=== PATIENT | male | born 1950 | race Caucasian/White ===

== ENCOUNTER → 2017-02-17 | Outpatient (CLI) | payer OTHER ==
[~2017-02-17] VITALS: Ht 170.2 cm; Wt 87.6 kg
[~2017-02-17] MED LIST: A-B OTIC EAR DR15 ML OT; AMOXICILLIN875 MG PO; ASPIRIN EC81 M1 PO; ATORVASTATIN CA40 MG PO; CELLCEPT500 MG PO; CHLORTHALIDONE25 MG PO; HYDROCODONE-AP1 EAC6 PO; IMDUR 30 MG TAB30 M1 PO; LISINOPRIL40 MG PO; LOPRESSOR100 MG PO; NORCO 5-325 TA1 EACH PO; PREDNISONE 10 M10 M1 PO; PROGRAF5 MG PO; PROSCAR 5MG TABL5 MG PO; TRAMADOL 50 MG50 MG PO; VITAMIN D400 UNI1 PO; ZOCOR 20 MG TAB20 M1 PO
--- NOTE | ~2017-02-17 | HPC ---
[facility] [place] [address] PAIN MANAGEMENT CONSULTATION Name: JAIME KELLY Room #: REG CL Kacy#: [id number] Admission: 02/17/17 Attend Phys: John Guerra MD Discharge: Date of : 54 Report #: [id number] THIS REPORT FOR: //name// CC: John Ramos MD DATE OF SERVICE: 02/17/2017 FOLLOWUP COMPLAINT: Here for an epidural steroid injection. FOLLOWUP HISTORY: The patient is a 66-year-old gentleman who has been seen in the pain clinic because of lumbar radiculopathy. He has undergone epidural steroid injections and gleaned benefits from these. He has had greater than 50% improvement after the epidural steroid injections. He rates his pain as a 3 today, but continues to have some left buttocks pain with pain down into his left thigh. He notes he is unable to engage in some certain activities of daily living with ease because of this pain and discomfort. He has returned to the pain clinic for an epidural steroid injection. There were no complications. No bowel or bladder dysfunction. IMPRESSION: 1. Lumbar radiculopathy, greater than 50% improvement in the past. 2. Hypercholesterolemia. 3. Hypertension. Blood pressure 150/85, pulse 70, respiratory rate 14, and room air saturation is 98%. The patient would like to proceed. Complications were again reviewed and the patient elects to proceed. PROCEDURE NOTE: The patient was placed in the prone position. Fluoroscopy was used to identify the L5-S1 interspace. This area had been sterilely prepped with Betadine and infiltrated with 0.25% bupivacaine. Total of 80 mg Depo-Medrol, 40 mg triamcinolone and 2 mL of 0.25% bupivacaine was injected. The patient tolerated the procedure well. There were no complications. He remained in the pain clinic for an appropriate amount of time. Pain has decreased to 0 at the time of discharge. We would like to thank you for letting us participate in his care. We hope he continues to improve. <ELECTRONICALLY SIGNED> By: John Guerra MD 02/23/17 0824 [id number] [id number] John Guerra MD /nt
[2017-02-17 08:57] VITALS: BP 150/85
== END ==
LOC: PAIN 06:56
DX: M54.16 Radiculopathy, lumbar region (principal); E78.00 Pure hypercholesterolemia, unspecified; I10 Essential (primary) hypertension

== ENCOUNTER → 2017-06-02 | Outpatient (CLI) | payer OTHER ==
[~2017-06-02] VITALS: Ht 170.2 cm; Wt 87.5 kg
--- NOTE | ~2017-06-02 | HPC ---
[facility] [place] [address] PAIN MANAGEMENT CONSULTATION Name: JAIME KELLY Room #: REG [facility] Kacy#: [id number] Admission: 06/02/17 Attend Phys: John Guerra MD Discharge: Date of : 54 Report #: [id number] THIS REPORT FOR: //name// CC: John Ramos MD DATE OF SERVICE: 06/02/2017 FOLLOWUP COMPLAINT: Return of pain down into the left leg with numbness and weakness as before. Pain improved greater than 80% after the last injection. FOLLOWUP HISTORY: The patient is a 66-year-old gentleman who has been seen in the pain clinic because of lumbar radiculopathy. He has undergone epidural steroid injections in the past and improved greater than 50% after treatment. He has noted over the last few months some increased pain and discomfort, which is radiating down into his legs posteriorly. Pain is greatest in the left leg calf at this juncture. He describes it as sharp, shooting, aching pain. Pain intensity can vary. It intensifies with standing, sitting as well as walking. Pain has improved in the past with epidural steroid injections as well as lying down. He feels that another epidural steroid injection could and would be beneficial. He has had to limit his activities of daily living because of the return of this pain. He denies any change in his bowel or bladder function. PHYSICAL EXAMINATION: VITAL SIGNS: Blood pressure 138/77, pulse 72, respiratory rate 16, room air saturation is 100%. Height 5 feet 7 inches, weight 192 pounds, BMI is 30. EXTREMITIES: The patient has not fallen since we saw him last. He does have pain and discomfort in the low back area in the lumbar area in the L5-S1 distribution, L5-S1 dermatomal area, left greater than right. IMPRESSION: 1. Lumbar radiculopathy with greater than 50% improvement after epidural steroid injections in the past. 2. Hypercholesterolemia. 3. Hypertension. RECOMMENDATIONS: We discussed treatment options with the patient. Risks and benefits of an epidural steroid injection were again reviewed. Possible complications were discussed. They include bleeding, infection, increased muscle soreness, nerve trauma, but are not limited to these. He would like to proceed. We will petition his insurance company regarding his condition and seek treatment. ___, the patient has been given permission. We will proceed with a lumbar epidural steroid injection to help control the patient's pain and discomfort and increase his level of activity closer [place] [address] PAIN MANAGEMENT CONSULTATION Name: JAIME KELLY Room #: REG [facility]#: [id number] Admission: 06/02/17 Attend Phys: John Guerra MD Discharge: Date of : 54 Report #: [id number] to thank you for letting us participate in his care. We hope he continues to improve. By: 1317 0500 John Guerra MD /
[2017-06-02 08:34] VITALS: BP 138/77
== END ==
LOC: PAIN 07:20
DX: M54.16 Radiculopathy, lumbar region (principal); E78.00 Pure hypercholesterolemia, unspecified; I10 Essential (primary) hypertension

== ENCOUNTER → 2017-07-07 | Outpatient (CLI) | payer OTHER ==
[~2017-07-07] VITALS: Ht 170.2 cm; Wt 88.8 kg
--- NOTE | ~2017-07-07 | HPC ---
[facility] [place] [address] PAIN MANAGEMENT CONSULTATION Name: JAIME KELLY [id number] Admission: 07/07/17 Attend Phys: John Guerra MD Discharge: Date of : 54 Report #: [id number] THIS REPORT FOR: //name// CC: John Ramos MD DATE OF SERVICE: 07/07/2017 CHIEF COMPLAINT: Onset and return of pain radiating down into the left leg, which has improved by greater than 80% after the last injection. FOLLOWUP HISTORY: The patient is a 66-year-old gentleman who has been seen in the pain clinic because of lumbar radiculopathy. He has undergone epidural steroid injections and gleaned benefits from these. He returns today indicating that his pain is a 3, but causes problems with walking, standing and changing position. He would like to proceed with an epidural steroid injection. He denies any bowel or bladder dysfunction, has had no new trauma. Pain continued, which radiates down into his left leg. PHYSICAL EXAMINATION: VITAL SIGNS: Blood pressure 140/72, pulse 70, respiratory rate 16, room air saturation is 100, height 5 feet 7 inches, weight 197 pounds, BMI is 30. EXTREMITIES: He has not fallen since we saw him last. He continues to have pain in the L5-S1 dermatomal distribution. IMPRESSION: 1. Lumbar radiculopathy involving the left L5-S1 dermatomal distribution. 2. Hypercholesterolemia. 3. Hypertension. RECOMMENDATIONS: We discussed risks and benefits of the procedure with the patient. Risks, which could include infection, increased muscle soreness, headache, bleeding, nerve damage and increased pain. The patient elects to proceed. PROCEDURE NOTE: The patient was placed in the prone position. Fluoroscopy was used to identify the L5-S1 dermatomal area. ____ the left paraspinous area was identified. A 17-gauge Tuohy with loss of resistance technique was used to gain access to the epidural space. There was no CSF, heme or paresthesia. Total of 80 mg Depo-Medrol, 40 mg triamcinolone and 2 mL of 0.25% bupivacaine was injected. A total of about 10 seconds fluoroscopy time was used. We would like [address] [address] PAIN MANAGEMENT CONSULTATION Name: JAIME KELLY Room #: REG [facility].#: [id number] Admission: 07/07/17 Attend Phys: John Guerra MD Discharge: Date of : 54 Report #: [id number] to thank you for letting us participate in his care. We hope he continues to improve. By: [id number] John Guerra MD /MOLLY
[2017-07-07 09:22] VITALS: BP 140/72
== END | disposition home or self-care (01) ==
LOC: PAIN 07:18
DX: M54.16 Radiculopathy, lumbar region (principal); E78.00 Pure hypercholesterolemia, unspecified; I10 Essential (primary) hypertension; Z68.30 Body mass index [BMI] 30.0-30.9, adult

== ENCOUNTER → 2017-11-19 | Outpatient (CLI) | payer OTHER ==
[~2017-11-19] VITALS: Ht 170.2 cm; Wt 93.1 kg
[~2017-11-19] MED LIST changes: +CEFUROXIME250 MG PO
--- NOTE | ~2017-11-19 | HPC ---
[facility] [place] [address] PAIN MANAGEMENT CONSULTATION Name: JAIME KELLY Room #: REG [facility] Kat.#: [id number] Admission: 11/19/17 Attend Phys: John Guerra MD Discharge: Date of : 54 Report #: [id number] THIS REPORT FOR: //name// CC: John Ramos MD DATE OF SERVICE: 11/19/2017 FOLLOWUP COMPLAINT: Pain with control was pretty good and has slowly returned. I would like another injection greater than 50% improvement after the injection. FOLLOWUP HISTORY: The patient is a very pleasant 67-year-old gentleman who has been followed in the pain clinic because of lumbar radicular pain. He has undergone epidural steroid injections in the past. Last injection was in 07/2017. Noted good relief as a result of that. He is now beginning to have return of this pain. It radiates down the lower portion of his back and his right buttocks and to the posterior portion of his thigh. Notes some weakness and tenderness in the affected area. Denies any significant changes to his bowel or bladder function. He has not fallen or had new trauma. Denies any significant exertional changes which would have caused this. This is noted slow and increasing discomfort in the posterior portion of his leg with radiation down into the L5-S1 area with some numbness, aching and worsening of pain with standing, walking and changing from a sitting to a walking activity. ALLERGIES: SULFA. CURRENT MEDICATIONS: Have been reviewed and are hydrocodone 5/325 one q. 6 hours p.r.n., Proscar 5 mg 1 tablet daily, tramadol 50 mg b.i.d., Lipitor 40 mg daily, chlorthalidone 12.5 mg daily, Imdur 30 mg daily, prednisone 10 mg daily, Prograf b.i.d. takes 3 tabs in the morning, 2 tabs in the night, metoprolol 100 mg, lisinopril 40 mg, CellCept 500 mg, aspirin 81 mg. PHYSICAL EXAMINATION GENERAL: The patient is a well-developed white male, appears stated age, alert and oriented x 3. Affect is appropriate. HEENT: Normocephalic, atraumatic. Extraocular eye muscles intact, nonicteric. Ears, normal hearing. No nasal congestion or complaint. Moist buccal membranes. NECK: Without adenopathy or JVD. HEART: Regular rate. ABDOMEN: Nontender. Upper extremities is judged to be 5/5 with motor strength. No sensory changes. MUSCULOSKELETAL: Within normal limits without significant kyphosis, lordosis, or scoliosis. The patient has pain and discomfort radiating down into the left buttocks area in the L5-S1 distribution. Positive left straight leg raise. [facility] [address] [place] [address] PAIN MANAGEMENT CONSULTATION Name: JAIME KELLY IDALIA [facility] [id number] Admission: 11/19/17 Attend Phys: John Guerra MD Discharge: Date of : 54 Report #: [id number] Muscle strength is judged to be 5/5 in the major muscle groups in the lower extremity. PAIN CLINIC ASSESSMENT: 1. History of osteoarthritis. The patient denies rheumatoid arthritis. 2. Height 5 feet 7 inches, weight 205 pounds, BMI is 32.1. 3. VITAL SIGNS: Blood pressure 145/70, pulse 67, respiratory rate 16, room air saturation is 98%. 4. Pain intensity 2. 5. Fall risk. The patient has not fallen in the last 3 months. Does not need assistance with walking. 6. The patient is not on any blood thinners. 7. History of hypertension. The patient is being treated appropriately for hypertension. 8. Opioid use greater than 6 weeks. The patient uses tramadol. 9. Risk assessment tool. 10. Functional assessment tool. 11. Recreational drugs. Denies use of recreational drugs. Denies use of tobacco at this juncture. Denies use of alcoholic beverages on a regular basis. The patient is a former smoker. 12. Transplanted kidney. IMPRESSION: 1. Lumbar radiculopathy in the left L5-S1 dermatomal distribution, which has improved with epidural steroid injection in the past. 2. Hypercholesterolemia. 3. Hypertension. RECOMMENDATIONS: We discussed treatment options with the patient. He has gleaned benefit from the past injections. He finds that they are helpful. At this juncture, he would like to proceed with another epidural steroid injection. Possible complication of the procedure, which could include but were not limited to infection, increased muscle soreness, headache, bleeding, nerve damage and spinal headache were discussed. The patient elects to proceed. He will continue with his current medical regimen. He will call us if he has any problems with his medications. PROCEDURE NOTE: The patient was taken to the procedure area. He was assisted in getting on the examination table. A pillow was placed underneath the abdomen for bolstering. Fluoroscopy used in the AP and lateral viewing was used for the targeted area of the left L5-S1 area. This area had been sterilely prepped with Betadine and infiltrated with 0.25% bupivacaine. A 17-gauge Tuohy with loss of resistance technique was used to gain access to the epidural space. There was no CSF, heme or paresthesia. Total of 80 mg Depo-Medrol, 40 mg triamcinolone and 2 mL of 0.25% bupivacaine was injected. The patient tolerated the procedure well. A Band-Aid was placed at the site. There was no appreciable bleeding. [facility] [address] [place] [address] PAIN MANAGEMENT CONSULTATION Name: JAIME KELLY Room #: REG [facility].#: [id number] Admission: 11/19/17 Attend Phys: John Guerra MD Discharge: Date of : 54 Report #: [id number] He was then escorted to the Recovery Room where he remained for an appropriate amount of time. He will call us if he has any problems or concerns after the procedure. We would like to thank you for letting us participate in his care. We hope he continues to improve. <ELECTRONICALLY SIGNED> By: John Guerra MD 12/15/17 1424 [id number] John Guerra MD /MOLLY
[2017-11-19 08:46] VITALS: BP 145/70
== END ==
LOC: PAIN 07:15
DX: M54.16 Radiculopathy, lumbar region (principal); E78.00 Pure hypercholesterolemia, unspecified; I10 Essential (primary) hypertension; M19.90 Unspecified osteoarthritis, unspecified site; Z79.891 Long term (current) use of opiate analgesic; Z94.0 Kidney transplant status; Z88.2 Allergy status to sulfonamides; Z79.82 Long term (current) use of aspirin; Z79.899 Other long term (current) drug therapy

== ENCOUNTER → 2018-01-24 | Outpatient (CLI) | payer OTHER ==
[~2018-01-24] MED LIST changes: -CEFUROXIME250 MG PO
== END ==
LOC: NUC 06:38
DX: I25.10 Atherosclerotic heart disease of native coronary artery without angina pectoris (principal); I10 Essential (primary) hypertension; E78.5 Hyperlipidemia, unspecified; I21.9 Acute myocardial infarction, unspecified; Z87.891 Personal history of nicotine dependence

== ENCOUNTER → 2018-02-18 | Outpatient (CLI) | payer OTHER ==
[~2018-02-18] VITALS: Ht 170.2 cm; Wt 90.8 kg
--- NOTE | ~2018-02-18 | HPC ---
[facility] [place] [address] PAIN MANAGEMENT CONSULTATION Name: JAIME KELLY Room #: REG [facility] Kat.#: [id number] Admission: 02/18/18 Attend Phys: John Guerra MD Discharge: Date of : 54 Report #: [id number] THIS REPORT FOR: //name// CC: John Ramos FOLLOWUP COMPLAINT: Pain is beginning to go down into both hips and into the anterior portion of my leg and down past the left calf. FOLLOWUP HISTORY: The patient is a 67-year-old gentleman who has been followed in the pain clinic because of chronic pain. He pain is radiating down into his legs. He episodically receives injections. He finds that these are beneficial. At this juncture, he has noted a worsening of his pain. He rates it as a 2-3. Has perception of some weakness, fatigue increasing. He is experiencing aching discomfort with numbness. Pain is exacerbated with walking, getting up from his chair as well as activities of daily living. He would like to proceed with the epidural steroid injection. He gleans greater than 50% improvement after the injections. Denies any new trauma. Denies any problem with his bowel or bladder function. The patient continues to have pain and discomfort, which radiates down into the L5-S1 area, primarily on the left at this juncture. ALLERGIES: SULFA. CURRENT MEDICATIONS: Hydrocodone 5/325 q.4-6 hours p.r.n., Proscar 5 mg daily, tramadol 50 mg b.i.d., Lipitor 40 mg daily, chlorthalidone 12.5 mg daily, Imdur 30 mg daily, prednisone 10 mg, Prograf b.i.d. takes 2 tablets of this in the morning, 2 tablets in the evening, metoprolol 100 mg, lisinopril 40 mg, CellCept 500 mg, aspirin 81 mg daily. PAIN CLINIC ASSESSMENT: 1. History of osteoarthritis. The patient is not being routinely treated for osteoarthritis or rheumatoid arthritis. 2. Height 5 feet 7 inches, weight 200 pounds, BMI is 31. 3. VITAL SIGNS 169/86, pulse 72, respirations 16, saturation is 100%. 4. Pain intensity 2-3, approximately 80% improvement after the last injection. 5. Fall risk. The patient has not fallen in the last 3 months. 6. Blood thinner. The patient is on a blood thinning medication. 7. History of hypertension. 8. History of hypertension. The patient is being treated for hypertension. 9. Opioid therapy greater than 6 weeks. 10. Risk assessment tool. 11. Functional assessment tool. 12. Recreational drug use. 13. Tobacco use. 14. Alcohol: Occasional alcoholic use. PHYSICAL EXAMINATION: [facility] [address] [place] [address] PAIN MANAGEMENT CONSULTATION Name: JAIME KELLY IDALIA [id number] Admission: 02/18/18 Attend Phys: John Guerra MD Discharge: Date of : 54 Report #: [id number] GENERAL: The patient is a well-developed, well-nourished white male. He appears his stated age. He is alert and oriented x 3. His affect is appropriate. Speech is fluent. HEENT: Normocephalic, atraumatic. Extraocular eye muscles intact, nonicteric. Hearing is within normal limits. Mucous membranes are moist. NECK: Without adenopathy or JVD. Good range of motion. HEART: Regular rate. S1, S2. ABDOMEN: Nontender. MUSCULOSKELETAL: Without significant scoliosis, kyphosis or lordosis. Upper extremities exam judged 5/5 for the major muscle groups without sensory changes. Muscle bulk is symmetrical. Lower Extremities: The patient has pain and discomfort radiating down the left side into the buttocks with weakness, tenderness and discomfort in both hips and primarily affecting the L5-S1 area on the left. IMPRESSION: 1. Lumbar radiculopathy of the L5-S1 dermatomal distribution which improves with epidural steroid injection by greater than 50% in the past. 2. Hypercholesterolemia. 3. Hypertension. RECOMMENDATIONS: We discussed treatment options with the patient. We will proceed with an epidural steroid injection. Risks and benefits of the procedure, which could include but are not limited to infection, increased muscle soreness, headache, bleeding, paresis, paralysis. The patient is aware. We discussed the elevations of glucose levels, which can occur with use of steroid medications. The patient will continue to monitor his blood sugar. He will call us if he has any concerns. He elects to proceed. PROCEDURE NOTE: The patient was helped in the fluoroscopy room. He was then assisted in getting on the table. He was placed in the prone position. Fluoroscopy using anterior, posterior as well as lateral viewing was used to identify the left L5-S1 area. This area was then sterilely prepped. A 17-gauge Tuohy with loss of resistance technique was used to gain access to the epidural space. There was no CSF, heme or paresthesia. Total of 80 mg of Depo-Medrol, 40 mg of triamcinolone and 2 mL of 0.25% bupivacaine was injected. The patient tolerated the procedure well. There were no complications. He remained in the pain clinic for an appropriate amount of time. His pain decreased to 1 at the time of discharge. A total of 5 seconds fluoroscopy time was used. By: 1532 00 John Guerra MD /ilana
[2018-02-18 08:06] VITALS: BP 169/86
== END | disposition home or self-care (01) ==
LOC: PAIN 07:14
DX: M54.16 Radiculopathy, lumbar region (principal); G89.29 Other chronic pain; I10 Essential (primary) hypertension; E78.00 Pure hypercholesterolemia, unspecified; Z79.891 Long term (current) use of opiate analgesic; Z79.899 Other long term (current) drug therapy; Z79.82 Long term (current) use of aspirin; Z98.890 Other specified postprocedural states; Z88.2 Allergy status to sulfonamides

== ENCOUNTER 2018-03-14 19:15 | Emergency (ER) | payer OTHER ==
[~2018-03-14] VITALS: Ht 170.2 cm; Wt 89.8 kg
[2018-03-14 20:07] LABS: URINE BILIRUBIN NEGATIVE (Negative); URINE BLOOD 3+ (Negative); URINE CLARITY CLEAR; URINE COLOR YELLOW; URINE GLUCOSE-RANDOM* NEGATIVE (Negative); URINE KETONES NEGATIVE (Negative); URINE LEUKOCYTES 1+ (Negative); URINE NITRITE NEGATIVE (Negative); URINE PROTEIN (DIPSTICK) TRACE (Negative); URINE UROBILINOGEN 0.2 E.U./dl (0.2-1.0)
[2018-03-14 20:21] LABS: BACTERIA 1-9 Few /HPF (None Seen); CASTS None Seen /LPF (None Seen); CRYSTALS None Seen /LPF (None Seen); MUCUS 0-3 Light strn/LPF (None Seen); URINE WBC >25 Many /HPF (0-5)
[2018-03-14 20:22] LABS: SQUAMOUS 0-3 Few /LPF (0-3); WBC CLUMPS Moderate (None Seen)
[2018-03-14] MEDS ORDERED: CEFUROXIME250 MG PO (20:44)
[2018-03-14 20:47] LABS: BASOPHILS 0.1 % (0.0-2.0); HEMATOCRIT 36.8 % (42.0-52.0); HEMOGLOBIN 12.4 gm/dL (14.0-18.0); LYMPHOCYTES 2.3 % (24.0-44.0); MCH 29.8 pg (26.0-34.0); MCHC 33.8 g/dL (28.0-37.0); MCV 88.3 fL (80.0-100.0); MONOCYTES 1.8 % (1.0-8.0); PLATELET COUNT 108 thou/uL (150-400); POLYS 95.8 % (36.0-66.0); RBC 4.17 mil/uL (4.50-6.00); RDW 14.7 % (10.5-14.5); WBC 9.4 thou/uL (4.0-11.0)
[2018-03-14 20:56] LABS: CALCIUM 9.4 mg/dL (8.5-10.1); CREATININE 1.9 mg/dL (0.7-1.3); POTASSIUM 3.5 mmol/L (3.5-5.1)
[2018-03-14 21:02] LABS: ALBUMIN 3.5 g/dL (3.4-5.0); DIRECT BILIRUBIN 0.2 mg/dL (<0.1-0.3); TOTAL BILIRUBIN 0.7 mg/dL (<0.1-1.0); TOTAL PROTEIN 6.3 g/dL (6.4-8.2)
== END 2018-03-14 21:52 | disposition home or self-care (01) ==
LOC: ER 19:15
PROVIDERS: Emergency Medicine
DX: N39.0 Urinary tract infection, site not specified (principal); N28.9 Disorder of kidney and ureter, unspecified; A41.9 Sepsis, unspecified organism; Z88.2 Allergy status to sulfonamides

== ENCOUNTER → 2018-05-25 | Outpatient (CLI) | payer OTHER ==
[~2018-05-25] VITALS: Ht 170.2 cm; Wt 88.9 kg
[~2018-05-25] MED LIST changes: +CEFUROXIME250 MG PO
--- NOTE | ~2018-05-25 | HPC ---
[facility] [place] [address] PAIN MANAGEMENT CONSULTATION Name: JAIME KELLY Room #: REG [facility] Kacy#: [id number] Admission: 05/25/18 Attend Phys: John Guerra MD Discharge: Date of : 54 Report #: [id number] THIS REPORT FOR: //name// CC: John Ramos DATE OF SERVICE: 05/25/2018 FOLLOWUP COMPLAINT: Pain is returned. Things have gone very well since I saw you last. FOLLOWUP HISTORY: The patient is a 67-year-old gentleman who has been followed in the pain clinic because of chronic pain involving his low back. He has pain that radiates down the L5-S1 dermatomal distribution. He has last injection about 6 months ago. Things have been going reasonably well. He has noted a slow recurrence of his pain and discomfort. He would like to proceed with another injection. He is having some numbness down into his calf. Not as pronounced as he has in the past. Rates his pain between 2 and 4. He has had no falls or change in bowel or bladder function since we saw him last. PAST MEDICAL HISTORY: 1. Positive for kidney transplant. 2. Lumbar radiculopathy, L5-S1 dermatomal distribution, which improved with epidural steroid injections in the past. 3. Hypercholesterolemia. 4. Hypertension. ALLERGIES: SULFA. CURRENT MEDICATIONS: Hydrocodone 5/325 one p.o. ____, Proscar 5 mg, tramadol 50 mg b.i.d., Lipitor 40 mg, chlorthalidone 12.5 mg, Imdur 30 mg, prednisone 10 mg daily, Prograf b.i.d., takes 3 tabs in the morning, 2 tabs at night; metoprolol 100 mg, lisinopril 40 mg, CellCept 500 mg, and aspirin 81 mg. PAIN CLINIC ASSESSMENT: 1. History of osteoarthritis. The patient states he has not been treated for osteoarthritis or rheumatoid arthritis. 2. Height 5 feet 7 inches, weight 196 pounds, BMI is 30.7. VITAL SIGNS: Blood pressure ____, pulse 74, respiratory rate 16, room air saturation 99%. 3. Pain intensity 11/13. 4. Fall risk. The patient has not fallen in the last 3 months. 5. Blood thinner. The patient is not on a blood thinning medication. 6. Hypertension. The patient is being treated for hypertension. 7. Opioid therapy. The patient does receive opioid medications on occasions. 8. Risk assessment tool, low for [place] [address] PAIN MANAGEMENT CONSULTATION Name: JAIME KELLY Room #: REG [facility]#: [id number] Admission: 05/25/18 Attend Phys: John Guerra MD Discharge: Date of : 54 Report #: [id number] 9. Functional assessment tool. 10. Recreational drug use. The patient denies use of recreational drugs. 11. Tobacco: The patient has never smoked. 12. Alcohol: The patient denies frequent use of alcoholic beverages. PHYSICAL EXAMINATION: GENERAL: The patient is a well-developed, well-nourished white male. Appears his stated age. He is alert and oriented x 3. Speech is fluent. HEENT: Normocephalic, atraumatic. Extraocular eye muscles intact. Sclerae nonicteric. Mucous membranes moist. NECK: Without JVD or adenopathy. HEART: Regular rate. S1, S2. LUNGS: Clear to auscultation. MUSCULOSKELETAL: Without significant scoliosis, kyphosis or lordosis. Upper extremity muscle strength 5/5 without sensory changes, low back area. The patient has pain and discomfort which radiated down the L5-S1 dermatomal distribution involving the left side. He has undergone epidural steroid injection in this area in the past and found it beneficial. RECOMMENDATIONS: We discussed treatment options with the patient. Risks and benefits of an epidural steroid injection were again reviewed. Possible complications, which are infection, increased muscle soreness, headache, worsening of pain, no improvement in pain, paralysis, increased headache. The patient elects to proceed. PROCEDURE NOTE: The patient was taken to the procedure room. He was assisted in getting on the examination table. His back was sterilely prepped with a Betadine prep. A 0.25% bupivacaine was infiltrated in this area. Anterior, posterior as well as lateral viewing with fluoroscopy was used to direct the needle; in a left paraspinal approach, a 17-gauge Tuohy was advanced. A total of 80 mg Depo-Medrol, 40 mg triamcinolone and 2 mL of 0.25% bupivacaine was injected. The patient tolerated the procedure well. There were no complications. He remained in the pain clinic for an appropriate amount of time. He will follow up in the future as needed. We would like to thank you for letting us participate in his care. We hope he continues to improve. By: [id number] 1731 John Guerra MD /ilana
[2018-05-25 09:40] VITALS: BP 108/67
== END | disposition home or self-care (01) ==
LOC: PAIN 07:31
DX: M54.16 Radiculopathy, lumbar region (principal); G89.29 Other chronic pain; I10 Essential (primary) hypertension; E78.00 Pure hypercholesterolemia, unspecified; Z94.0 Kidney transplant status; Z88.2 Allergy status to sulfonamides; Z79.891 Long term (current) use of opiate analgesic; Z79.899 Other long term (current) drug therapy; Z79.82 Long term (current) use of aspirin; Z98.890 Other specified postprocedural states

== ENCOUNTER → 2018-08-31 | Outpatient (CLI) | payer OTHER ==
[~2018-08-31] VITALS: Ht 170.2 cm; Wt 89.7 kg
[2018-08-31 08:27] VITALS: BP 138/79
--- NOTE | 2018-08-31 08:39 | NUR ---
Pain Clinic Assessment: 1. History of Osteoarthritis: Not Applicable History of Rheumatoid Arthritis: Not Applicable 2. Height: 5 ft. 7 in. 170.2 cm. Weight: 197.8 lb. oz. 89.722 kg. Patient's BMI: 31.0 3. Vital Signs: BP: 138/79 Pulse: 76 Resp: 18 Temp: 02 Sat: 100 ECG Mon: 4. Pain Intensity: 3 today 5 worst 5. Fall Risk: Dizziness: N Needs help standing or walking: N Fallen in the last 3 months: N Fall risk comments: 6. Patient on Blood Thinner: None 7. History of Hypertension: Y 8. Opioid Therapy greater than 6 weeks: N Opiate Contract Signed: 9. Risk Assessment Tool Provided: 10. Functional Assessment Tool: 11. Recreational Drug Use: Never Drug Type: Tobacco Use: Never Smoker Tobacco Type: Amount or Packs/day: How Many Years: Alcohol Use: Yes Frequency: Quant:
--- NOTE | 2018-09-07 08:55 | HPC ---
[facility] [place] [address] PAIN MANAGEMENT CONSULTATION Name: JAIME KELLY Room #: REG [facility] Kat.#: [id number] Admission: 08/31/18 Attend Phys: John Guerra MD Discharge: Date of : 54 Report #: [id number] THIS REPORT FOR: //name// CC: John Ramos DATE OF SERVICE: 08/31/2018 FOLLOWUP COMPLAINT: Here for another epidural steroid injection. Things were helped by the last one. FOLLOWUP HISTORY: The patient is a very pleasant 68-year-old gentleman who has been followed in the pain clinic because of chronic low back pain with lumbar radicular components. He has undergone epidural steroid injection in the L5-S1 dermatomal distribution in the past, things have gone relatively well. He has noticed a recurrence of his pain and has returned to the pain clinic for another epidural steroid injection. He gleaned greater than 50% improvement each time. At this juncture, he has noticed that the pain has increased and is radiating down into both hips and the anterior portion of his legs as well as some knee and calf discomfort. He describes it as sharp, aching numbness. This is 3 today, at its worse, it can rise to the level of 5. Standing, walking, and getting up from a sitting position all can cause increased pain. Notes that the epidural steroid injections continue to be beneficial. Lying down and taking medications can be helpful as well. Denies any new trauma. Denies any falls or change in bowel or bladder function. ALLERGIES: SULFA. CURRENT MEDICATIONS: Hydrocodone 5/325 one p.o. q 6 hours p.r.n. pain, Proscar 5 mg, tramadol 50 mg b.i.d., Lipitor 40 mg, chlorthalidone 12.5 mg, Imdur 30 mg, prednisone 10 mg daily, Prograf b.i.d., takes 3 tablets in the morning and 2 tablets at night, metoprolol 100 mg, lisinopril 40 mg, CellCept 500 mg, and aspirin 81 mg. PAIN CLINIC ASSESSMENT AND PQRS: 1. History of osteoarthritis. The patient has not been treated for osteoarthritis or rheumatoid arthritis. 2. Height 5 feet 7 inches, weight 198 pounds, BMI is 31. 3. Vital signs: Blood pressure 138/79, pulse 76, respiratory rate 18, room air saturation is 100%. 4. Pain intensity, 3/10 at this point, and 5/10 at its worse. 5. Fall risk. The patient has not fallen in the last 3 months. 6. Blood thinner. The patient is not on a blood thinning medication. 7. Hypertension. The patient is being treated for hypertension. 8. Opioids greater than 6 weeks. The patient received medication from one source, [place] [address] PAIN MANAGEMENT CONSULTATION Name: JAIME KELLY IDALIA [id number] Admission: 08/31/18 Attend Phys: John Guerra MD Discharge: Date of : 54 Report #: [id number] 9. Risk assessment tool, low for opioid use. 10. Functional assessment tool. 11. Recreational drug use. The patient denies use of recreational drugs. 12. Tobacco: The patient has never smoked. 13. Alcohol. The patient drinks alcoholic beverages occasionally. PHYSICAL EXAMINATION: GENERAL: The patient is a well-developed, well-nourished white male. Appears his stated age. He is alert and oriented x 3. His affect is appropriate. Speech is fluent. HEENT: Normocephalic, atraumatic. Extraocular eye muscles intact. Sclerae nonicteric. Mucous membranes are moist. NECK: Without JVD or adenopathy. HEART: Regular rate. S1, S2. LUNGS: Clear to auscultation without rhonchi or rales. ABDOMEN: Nontender. Bowel sounds present. MUSCULOSKELETAL: Without significant scoliosis, kyphosis, and lordosis. Upper extremity muscle strength is judged to be 5/5 without sensory changes. The patient has some pain and discomfort in the lower portion of his back in the L5-S1 dermatomal distribution with radiation down to the left side. Involves the left leg lateral portion with pain that radiates past the knee cap down to the calf. IMPRESSION: 1. Lumbar radiculopathy in the L5-S1 dermatomal distribution, which has improved in the past with epidural steroid injection. 2. Hypercholesterolemia. 3. Hypertension. 4. Kidney transplant. 5. Heart attack 23 years ago. RECOMMENDATIONS: We discussed treatment options with the patient. Risks and benefits of an epidural steroid injection were discussed. The patient is having pain and discomfort in the L5-S1 dermatomal distribution down the left leg with sensory changes, which have improved with previous epidural steroid injections. The patient would like to proceed with an epidural steroid injection. Possible complication of the procedure, which could include infection, increased muscle soreness, headache, bleeding, worsening of pain, and no improvement in pain were reviewed and the patient elects to proceed. PROCEDURE NOTE: The patient was taken to the procedure area. He was assisted in getting on the examination table. A pillow was placed under his abdomen to bolster and improved positioning. Fluoroscopy using anterior, posterior as well as lateral viewing were implemented. At the L5-S1 area in the left paraspinous area. A 25-gauge needle was injected with local anesthetic. A 17-gauge Tuohy was then used to gain access in the left paraspinous approach. After [facility] [address] [place] [address] PAIN MANAGEMENT CONSULTATION Name: JAIME KELLY Room #: REG [facility]#: [id number] Admission: 08/31/18 Attend Phys: John Guerra MD Discharge: Date of : 54 Report #: [id number] appropriate placement, a total of 80 mg Depo-Medrol, 40 mg triamcinolone and 2 mL of 0.25% bupivacaine was injected. The patient's pain decreased to 1 at the time of discharge. He will follow up in the future as needed. We would like to thank you for letting us participate in his care. We hope he continues to improve. <ELECTRONICALLY SIGNED> By: John Guerra MD 09/07/18 0855 [id number] John Guerra MD /nt
== END ==
LOC: PAIN 05:40
DX: M54.16 Radiculopathy, lumbar region (principal); G89.29 Other chronic pain; I10 Essential (primary) hypertension; E78.00 Pure hypercholesterolemia, unspecified; I25.2 Old myocardial infarction; Z94.0 Kidney transplant status; Z98.890 Other specified postprocedural states; Z79.899 Other long term (current) drug therapy; Z88.2 Allergy status to sulfonamides; Z79.891 Long term (current) use of opiate analgesic

== ENCOUNTER → 2018-12-07 | Outpatient (CLI) | payer OTHER ==
[~2018-12-07] VITALS: Ht 170.2 cm; Wt 92.1 kg
--- NOTE | ~2018-12-07 | HPC ---
[facility] [place] [address] PAIN MANAGEMENT CONSULTATION Name: JAIME KELLY Room #: REG [facility] MEdwina.#: [id number] Admission: 12/07/18 ������������������ Attend Phys: John Guerra MD Discharge: ������������������ Date of : 54 Report #: [id number] THIS REPORT FOR: //name// CC: John Ramos DATE OF SERVICE: 12/07/2018 FOLLOWUP COMPLAINT: Here for an epidural steroid injection. Noticed some pain that is going down into both legs and both hips. It has been worse since September. FOLLOWUP HISTORY: The patient is a 68-year-old gentleman who has been followed in the Pain Clinic because of chronic low back pain. He has undergone epidural steroid injection from time to time. He gleans greater than 50% improvement after the epidural steroid injections. He has returned today and is complaining of pain and discomfort in his low back and down into his hips bilaterally. He rates it as a 3/10. He notes that he is having difficulty getting up from a sitting position. He finds his medications are helpful as well as application of cold to his back. He notes that prolonged standing can increase his discomfort. Denies any new trauma. Denies any new bowel or bladder change in function. ALLERGIES: SULFA. CURRENT MEDICATIONS: Hydrocodone 5/325s one p.o. q. six hours p.r.n., Proscar 5 mg, tramadol 50 mg b.i.d., Lipitor 40 mg, chlorthalidone 12.5 mg, Imdur 30 mg, prednisone 10 mg daily, Prograf b.i.d. - takes three tablets in the morning and two tablets at night, metoprolol 100 mg, lisinopril 40 mg, CellCept 500 mg, and aspirin 81 mg. PAIN CLINIC ASSESSMENT/PQRS: 1. History of osteoarthritis: The patient is not being treated for osteoarthritis or rheumatoid arthritis. 2. Height 5 feet 7 inches, weight 203 pounds, BMI is 31. 3. Vital signs: Blood pressure 144/85, pulse 64, respiratory rate 16, room air saturation 100%. 4. Pain intensity: 12/11. 5. Fall risk: The patient has not fallen in the last 3 months. 6. Blood thinner: The patient is not on a blood thinning medication. 7. Hypertension: The patient is being treated for hypertension. 8. Opioids greater than 6 weeks. 9. Risk assessment tool: Low for opioid use, 0/3. 10. Functional assessment tool: 39/70. 11. Recreational drug use: The patient denies use of recreational drugs. 12. Tobacco: The patient denies use of tobacco. [address] [address] PAIN MANAGEMENT CONSULTATION Name: JAIME KELLY IDALIA [facility] [id number] Admission: 12/07/18 ������������������ Attend Phys: John Guerra MD Discharge: ������������������ Date of : 54 Report #: [id number] 13. Alcohol: The patient drinks alcoholic beverages 1-2 drinks monthly. PHYSICAL EXAMINATION: GENERAL: The patient is a well-developed, well-nourished white male. He appears his stated age. He is alert and oriented x 3. His affect is appropriate. Speech is fluent. HEENT: Normocephalic, atraumatic. Extraocular eye muscles are intact. Sclerae are nonicteric. Mucous membranes are moist. NECK: Without adenopathy or JVD. HEART: Regular rate, S1 and S2. LUNGS: Clear to auscultation, without rhonchi or rales. ABDOMEN: Nontender. Bowel sounds present. MUSCULOSKELETAL: Without significant scoliosis, kyphosis, or lordosis. Upper extremity muscle strength is judged to be 5/5 without sensory changes. The patient has pain and discomfort in the lower portion of his back with pain in the L5-S1 dermatomal distribution down to the left leg. He would like to proceed with an epidural steroid injection. He also has pain that radiates down into his knee and calf area. IMPRESSION: 1. Lumbar radiculopathy, L5-S1 dermatomal distribution. 2. Hypercholesterolemia. 3. Hypertension. 4. Kidney transplant. 5. Heart attack 23 years ago. RECOMMENDATIONS: We discussed treatment options with the patient. Risks and benefits of an epidural steroid injection were discussed. Possible complications of the procedure, which could include but are not limited to infection, worsening of pain, no improvement in pain, nerve damage, trauma, spinal headache. The patient elects to proceed. PROCEDURE NOTE: The patient was taken to the procedure area. He was assisted in getting on the examination table. A pillow was placed under the abdomen to bolster and improve positioning. Fluoroscopy using anterior, posterior as well as lateral viewing were implemented. At the L5-S1 interspace, 0.25% bupivacaine was infiltrated using a 25-gauge needle. A 17-gauge Tuohy using a midline approach was then undertaken at the L5-S1 area. A 0.25% bupivacaine was infiltrated. A 17-gauge Tuohy with loss of resistance technique was used to gain access to the epidural space. There was no CSF, heme or paresthesia. A total of 80 mg Depo-Medrol, 40 mg triamcinolone and 2 mL of 0.25% bupivacaine was injected. A total of 9 seconds fluoroscopy time was used. [address] [address] PAIN MANAGEMENT CONSULTATION Name: JAIME KELLY [facility] [id number] Admission: 12/07/18 ������������������ Attend Phys: John Geurra MD Discharge: ������������������ Date of : 54 Report #: [id number] We would like to thank you for letting us participate in his care. We hope he continues to improve. ��������������������������������������������� ���������������������������������������� By: ��������������������������������������������� 0015 0330 John Guerra MD /nt
[2018-12-07 10:12] VITALS: BP 144/85
--- NOTE | 2018-12-07 10:46 | NUR ---
Pain Clinic Assessment: 1. History of Osteoarthritis: Not Applicable History of Rheumatoid Arthritis: Not Applicable 2. Height: 5 ft. 7 in. 170.2 cm. Weight: 203.0 lb. oz. 92.080 kg. Patient's BMI: 31.8 3. Vital Signs: BP: 144/85 Pulse: 64 Resp: 16 Temp: 02 Sat: 100 ECG Mon: 4. Pain Intensity: 3 5. Fall Risk: Dizziness: N Needs help standing or walking: N Fallen in the last 3 months: N Fall risk comments: 6. Patient on Blood Thinner: None 7. History of Hypertension: Y 8. Opioid Therapy greater than 6 weeks: N Opiate Contract Signed: 9. Risk Assessment Tool Provided: LOW RISK 0/3 10. Functional Assessment Tool: 39/70 11. Recreational Drug Use: Never Drug Type: Tobacco Use: Never Smoker Tobacco Type: Amount or Packs/day: How Many Years: Alcohol Use: Yes Frequency: Monthly Quant: 1-2
== END | disposition home or self-care (01) ==
LOC: PAIN 06:58
DX: M54.16 Radiculopathy, lumbar region (principal); G89.29 Other chronic pain; I10 Essential (primary) hypertension; E78.00 Pure hypercholesterolemia, unspecified; I25.2 Old myocardial infarction; Z94.0 Kidney transplant status; Z88.2 Allergy status to sulfonamides; Z79.891 Long term (current) use of opiate analgesic; Z98.890 Other specified postprocedural states; Z79.899 Other long term (current) drug therapy; Z87.440 Personal history of urinary (tract) infections; Z79.82 Long term (current) use of aspirin

== ENCOUNTER → 2019-03-03 | Outpatient (CLI) | payer OTHER ==
[~2019-03-03] VITALS: Ht 170.2 cm; Wt 90.4 kg
[2019-03-03 09:43] VITALS: BP 153/84
--- NOTE | 2019-03-03 09:53 | NUR ---
Pain Clinic Assessment: 1. History of Osteoarthritis: SPINE History of Rheumatoid Arthritis: NO 2. Height: 5 ft. 7 in. 170.2 cm. Weight: 199.4 lb. oz. 90.447 kg. Patient's BMI: 31.2 3. Vital Signs: BP: 153/84 Pulse: 70 Resp: 16 Temp: 02 Sat: 100 ECG Mon: 4. Pain Intensity: 4 5. Fall Risk: Dizziness: N Needs help standing or walking: N Fallen in the last 3 months: N Fall risk comments: 6. Patient on Blood Thinner: None 7. History of Hypertension: Y 8. Opioid Therapy greater than 6 weeks: N Opiate Contract Signed: 9. Risk Assessment Tool Provided: LOW RISK 0/3 10. Functional Assessment Tool: 11. Recreational Drug Use: Never Drug Type: Tobacco Use: Never Smoker Tobacco Type: Amount or Packs/day: How Many Years: Alcohol Use: Yes Frequency: Special Occasions Quant:
--- NOTE | 2019-03-08 08:16 | HPC ---
[facility] [place] [address] PAIN MANAGEMENT CONSULTATION Name: JAIME KELLY Room #: REG [facility] MEdwina.#: [id number] Admission: 03/03/19 ������������������ Attend Phys: John Guerra MD Discharge: ������������������ Date of : 54 Report #: [id number] THIS REPORT FOR: //name// CC: John Ramos DATE OF SERVICE: 03/03/2019 CHIEF COMPLAINT: Low back pain that is improved with epidural injections in the past and has come for another. HISTORY OF PRESENT ILLNESS: The patient is a 68-year-old gentleman who has been followed in the pain clinic because of chronic pain. He has undergone epidural steroid injections and finds that these are helpful. As you recall, currently he has greater than 50% improvement with the injections. He also has a history of a renal transplant. Things are going reasonably well from that juncture as well. He has some pain in his low back and involves his left leg. Notes that the left leg, hip and discomfort down to the knee is problematic. He rates it as a 4/10. It is exacerbated with activity and does have some cardiac history and overall things are going reasonably well from a cardiac standpoint as well. Has some right wrist, right shoulder discomfort. ALLERGIES: SULFA. CURRENT MEDICATIONS: Hydrocodone 5/325 1 p.o. q.4-6 hours p.r.n., Proscar 5 mg, tramadol 50 mg b.i.d. 1-2 daily, Lipitor 40 mg, chlorthalidone 12.5 mg daily, isosorbide, Imdur 30 mg, prednisone 10 mg, Prograf 5 mg b.i.d., Lopressor 10 mg, lisinopril 40 mg, CellCept 750 mg b.i.d. and aspirin 81 mg. PAIN CLINIC ASSESSMENT AND PQRS: 1. History of osteoarthritis. The patient is not being treated for osteoarthritis or rheumatoid arthritis. 2. Height 5 feet 7 inches, weight 199 pounds, BMI is 31.2. 3. Vital Signs: Blood pressure 153/84, pulse 70, respiratory rate 16, room air saturation is 100%. 4. Pain intensity 01/11. 5. Fall history: The patient has not fallen in the last 3 months. 6. Blood thinner. The patient is not on a blood thinning medication. 7. Hypertension. The patient is being treated for hypertension. 8. Opioids greater than 6 weeks. The patient receives his medications from one source. 9. Risk assessment tool, low for opioid use. 10. Functional assessment tool, 39/70. 11. Recreational drug use. The patient denies. 12. Tobacco: The patient has never smoked. 13. Alcohol: The patient denies other than occasional alcoholic beverage. [facility] [address] [place] [address] PAIN MANAGEMENT CONSULTATION Name: JAIME KELLY IDALIA [facility] [id number] Admission: 03/03/19 ������������������ Attend Phys: John Guerra MD Discharge: ������������������ Date of : 54 Report #: [id number] PHYSICAL EXAMINATION: GENERAL: The patient is a well-developed, well-nourished white male. Appears his stated age. He is alert and oriented x 3. Affect is appropriate. Speech is fluent. HEENT: Normocephalic, atraumatic. Extraocular eye muscles intact. Sclerae nonicteric. Mucous membranes are moist. NECK: Without adenopathy or JVD. HEART: Regular rate. S1, S2. LUNGS: Clear to auscultation without rhonchi or rales. ABDOMEN: Nontender. Bowel sounds present. MUSCULOSKELETAL: Without significant scoliosis, kyphosis or lordosis. Upper extremity muscle strength is judged to be 5-/5 without sensory changes. Lower extremity, the patient has pain and discomfort that is radiating down the L5 dermatomal distribution involving his left leg with pain and discomfort in the area of his calf and knee. IMPRESSION: 1. Lumbar radiculopathy with L5-S1 dermatomal distribution. 2. Hypercholesterolemia. 3. Hypertension. 4. Kidney transplant. 5. Heart attack 23 years ago. RECOMMENDATIONS: We discussed treatment options with the patient. At this juncture, he feels medications that he is on help with his pain. He also feels that the epidural steroid injections have been beneficial. He has returned today with the hope of undergoing an epidural steroid injection to help decrease the pain and discomfort he is experiencing that is radiating down into his leg. We discussed the risks and benefits that include, but are not limited to infection, increased muscle soreness, headache, bleeding, nerve damage with paralysis. The patient elects to proceed. PROCEDURE NOTE: The patient was taken to the procedure area. He was then assisted in getting on the examination table. His back was sterilely prepped with a Betadine solution. Fluoroscopy using anterior, posterior as well as lateral viewing were implemented. The patient's back was sterilely prepped and allowed to dry. A 0.25% bupivacaine using a 25-gauge needle was then used to infiltrate the L5-S1 area. Aspiration was negative. A total of 2 mL 0.5% bupivacaine was used to anesthetize the area. A 17-gauge Tuohy with loss of resistance technique at the L5-S1 area was then used. A left paramedian approach was undertaken. Aspiration was negative. Total of 80 mg Depo-Medrol, 40 mg triamcinolone and 2 mL of 0.25% bupivacaine was injected. The patient tolerated the procedure well. There were no complications. He remained in the pain clinic for an appropriate amount of time. Approximately 9 seconds fluoroscopy time was used. [address] [address] PAIN MANAGEMENT CONSULTATION Name: JAIME KELLY Room #: REG [facility]#: [id number] Admission: 03/03/19 ������������������ Attend Phys: John Guerra MD Discharge: ������������������ Date of : 54 Report #: [id number] We would like to thank you for letting us participate in his care. We hope he continues to improve. ��������������������������������������������� <ELECTRONICALLY SIGNED> ���������������������������������������� By: John Guerra MD ��������������������������������������������� 03/08/19 0816 1315 0406 John Guerra MD /MOLLY
== END | disposition home or self-care (01) ==
LOC: PAIN 06:47
DX: M54.16 Radiculopathy, lumbar region (principal); G89.29 Other chronic pain; I10 Essential (primary) hypertension; E78.00 Pure hypercholesterolemia, unspecified; I25.2 Old myocardial infarction; Z94.0 Kidney transplant status; Z98.890 Other specified postprocedural states; Z79.899 Other long term (current) drug therapy; Z88.2 Allergy status to sulfonamides; Z79.82 Long term (current) use of aspirin

== ENCOUNTER → 2019-06-14 | Outpatient (CLI) | payer OTHER ==
[~2019-06-14] VITALS: Ht 170.2 cm; Wt 88.0 kg
[~2019-06-14] MED LIST changes: +FLOMAX0.4 MG PO
[2019-06-14 08:39] VITALS: BP 148/74
--- NOTE | 2019-06-14 08:41 | NUR ---
Pain Clinic Assessment: 1. History of Osteoarthritis: SPINE History of Rheumatoid Arthritis: NO 2. Height: 5 ft. 7 in. 170.2 cm. Weight: 194.0 lb. oz. 87.998 kg. Patient's BMI: 30.4 3. Vital Signs: BP: 148/74 Pulse: 68 Resp: 16 Temp: 02 Sat: 97 ECG Mon: 4. Pain Intensity: 3-4-TODAY/DAILY AVG 5. Fall Risk: Dizziness: N Needs help standing or walking: N Fallen in the last 3 months: N Fall risk comments: 6. Patient on Blood Thinner: None 7. History of Hypertension: Y 8. Opioid Therapy greater than 6 weeks: N Opiate Contract Signed: 9. Risk Assessment Tool Provided: LOW RISK 0/3 10. Functional Assessment Tool: 39/70 11. Recreational Drug Use: Never Drug Type: Tobacco Use: Never Smoker Tobacco Type: Amount or Packs/day: How Many Years: Alcohol Use: Yes Frequency: Quant:
== END | disposition home or self-care (01) ==
LOC: PAIN 06-09 06:47
DX: M54.16 Radiculopathy, lumbar region (principal); G89.29 Other chronic pain; Z88.2 Allergy status to sulfonamides; Z79.82 Long term (current) use of aspirin; Z79.899 Other long term (current) drug therapy

== ENCOUNTER → 2019-09-04 | Outpatient (CLI) | payer OTHER ==
--- NOTE | 2019-09-04 10:51 | 2DMMODE ---
[facility] [employer] (acquired by [employer] in 2014) [place] [address] 2 D/M-MODE ECHOCARDIOGRAM Name: JAIME KELLY Room #: REG [facility]#: [id number] Admission: 09/04/19 Attend Phys: Abdoul Martinez MD Discharge: Date of : 54 Report #: [id number] THIS REPORT FOR: //name// APPROVED REPORT Study performed: 09/04/2019 10:02:18 EXAM: Comprehensive 2D, Doppler, and color-flow Echocardiogram Patient Location: Out-Patient Room #: Echo lab 2 Status: routine BSA: 2.00 HR: 69 bpm BP: 154/82 mmHg Rhythm: NSR Other Information Study Quality: Good Indications Diabetes CAD Hypertension/HDD 2D Dimensions RVDd: 31.30 mm IVSd: 11.28 (7-11mm) LVOT Diam: 18.57 (18-24mm) LVDd: 54.00 mm PWd: 10.83 (7-11mm) Ascending Ao: 29.15 (22-36mm) LVDs: 42.24 (25-40mm) Aortic Root: 33.38 mm IVC: 19.00 mm Volumes Left Atrial Volume (Systole) Single Plane 4CH: 92.20 mL Single Plane 2CH: 67.92 mL LA ESV Index: 42.00 mL/m2 Aortic Valve AoV Peak Noel.: 1.29 m/s AO Peak Gr.: 6.68 mmHg LVOT Max P.92 mmHg LVOT Max V: 0.99 m/s SAHIL Vmax: 2.08 cm2 Mitral Valve E/A Ratio: 1.1 [facility] [employer] (acquired by [employer] in 2014) [place] [address] 2 D/M-MODE ECHOCARDIOGRAM Name: JAIME KELLY Room #: REG CL [facility]#: [id number] Admission: 09/04/19 Attend Phys: Abdoul Martinez MD Discharge: Date of : 54 Report #: [id number] MV Decel. Time: 125.27 ms MV E Max Noel.: 1.15 m/s MV A Noel.: 1.03 m/s MV PHT: 36.33 ms IVRT: 119.95 ms Pulmonary Valve PV Peak Noel.: 0.93 m/s PV Peak Gr.: 3.50 mmHg Pulmonary Vein P Vein S: 0.64 m/s P Vein A: 0.24 m/s P Vein D: 0.52 m/s P Vein A Dur.: 83.0 msec P Vein S/D Ratio: 1.23 Left Ventricle The left ventricle is normal size. There is hypokinesis of the inferior wall. There is normal left ventricular wall thickness. Left ventricular systolic function is mildly decreased. LVEF is 45%. Grade I - abnormal relaxation pattern. Right Ventricle The right ventricle is normal size. The right ventricular systolic function is normal. Atria Left atrium is dilated. The right atrium size is normal. Aortic Valve The aortic valve is normal in structure. Aortic valve is calcified. No aortic regurgitation is present. There is no aortic valvular stenosis. Mitral Valve The mitral valve is normal in structure. Mild mitral regurgitation. No evidence of mitral valve stenosis. Tricuspid Valve The tricuspid valve is normal in structure. There is no tricuspid valve regurgitation noted. Pulmonic Valve The pulmonary valve is normal in structure. There is no pulmonic valvular regurgitation. Great Vessels The aortic root is normal in size. IVC is normal in size and [facility] [address] [place] [address] 2 D/M-MODE ECHOCARDIOGRAM Name: JAIME KELLY Room #: REG [facility]#: [id number] Admission: 09/04/19 Attend Phys: Abdoul Martinez MD Discharge: Date of : 54 Report #: [id number] collapses >50% with inspiration. Pericardium There is no pericardial effusion. <Conclusion> The left ventricle is normal size. There is normal left ventricular wall thickness. Left ventricular systolic function is mildly decreased. There is hypokinesis of the inferior wall. Grade I - abnormal relaxation pattern. The right ventricle is normal size. Left atrium is dilated. Aortic valve is calcified. Mild mitral regurgitation. There is no tricuspid valve regurgitation noted. <ELECTRONICALLY SIGNED> By: Abdoul Martinez MD 09/04/191050 50 50 Abdoul Martinez MD /INF
== END ==
LOC: CV 09:53
DX: I08.0 Rheumatic disorders of both mitral and aortic valves (principal); E11.9 Type 2 diabetes mellitus without complications; I25.10 Atherosclerotic heart disease of native coronary artery without angina pectoris; I10 Essential (primary) hypertension

== ENCOUNTER → 2019-09-15 | Outpatient (CLI) | payer OTHER ==
[~2019-09-15] VITALS: Ht 170.2 cm; Wt 91.2 kg
[2019-09-15 08:25] VITALS: BP 153/85
--- NOTE | 2019-09-15 08:39 | NUR ---
Pain Clinic Assessment: 1. History of Osteoarthritis: SPINE History of Rheumatoid Arthritis: NO 2. Height: 5 ft. 7 in. 170.2 cm. Weight: 201.0 lb. oz. 91.173 kg. Patient's BMI: 31.5 3. Vital Signs: BP: 153/85 Pulse: 73 Resp: 14 Temp: 02 Sat: 98 ECG Mon: 4. Pain Intensity: 2 5. Fall Risk: Dizziness: N Needs help standing or walking: N Fallen in the last 3 months: N Fall risk comments: 6. Patient on Blood Thinner: None 7. History of Hypertension: Y 8. Opioid Therapy greater than 6 weeks: N Opiate Contract Signed: 9. Risk Assessment Tool Provided: LOW RISK 0/3 10. Functional Assessment Tool: 39/70 11. Recreational Drug Use: Current within past 3 mos Drug Type: MARIJUANA Tobacco Use: Never Smoker Tobacco Type: Amount or Packs/day: How Many Years: Alcohol Use: Yes Frequency: Monthly Quant: 1-2
== END | disposition home or self-care (01) ==
LOC: PAIN 07:29
DX: M54.16 Radiculopathy, lumbar region (principal); Z88.2 Allergy status to sulfonamides; Z79.82 Long term (current) use of aspirin; Z79.899 Other long term (current) drug therapy

== ENCOUNTER → 2019-12-20 | Outpatient (CLI) | payer OTHER ==
[~2019-12-20] VITALS: Ht 170.2 cm; Wt 94.2 kg
[2019-12-20 09:59] VITALS: BP 159/91
--- NOTE | 2019-12-20 10:09 | NUR ---
Pain Clinic Assessment: 1. History of Osteoarthritis: SPINE History of Rheumatoid Arthritis: NO 2. Height: 5 ft. 7 in. 170.2 cm. Weight: 207.6 lb. oz. 94.167 kg. Patient's BMI: 32.5 3. Vital Signs: BP: 159/91 Pulse: 75 Resp: 18 Temp: 02 Sat: 99 ECG Mon: 4. Pain Intensity: 2 5. Fall Risk: Dizziness: N Needs help standing or walking: N Fallen in the last 3 months: N Fall risk comments: 6. Patient on Blood Thinner: None 7. History of Hypertension: Y 8. Opioid Therapy greater than 6 weeks: N Opiate Contract Signed: 9. Risk Assessment Tool Provided: LOW RISK 0/3 10. Functional Assessment Tool: 41/ 11. Recreational Drug Use: Never Drug Type: Tobacco Use: Never Smoker Tobacco Type: Amount or Packs/day: How Many Years: Alcohol Use: Yes Frequency: Special Occasions Quant:
--- NOTE | 2019-12-29 08:21 | HPC ---
[facility] [place] [address] PAIN MANAGEMENT CONSULTATION Name: JAIME KELLY [id number] Admission: 12/20/19 Attend Phys: John Guerra MD Discharge: Date of : 54 Report #: [id number] THIS REPORT FOR: cc: Romel Simms MD,Romel Guerra,John Lombardi MD ~ CC: John Simms DATE OF SERVICE: 12/20/2019 CHIEF COMPLAINT: The pain was better for the last few months. It has now recurred. HISTORY: The patient is a 69-year-old gentleman who has been followed in the pain clinic because of lumbar radiculopathy. He has undergone epidural steroid injections. These have been quite helpful. He is experiencing pain that continues to radiate down into his left leg. Epidural steroid injections in the past have been beneficial. He rates his pain today as a 2/10. The pain does appear to be increasing. He noticed some increased discomfort as a result of that. Epidural steroid injections have been fruitful. He is not having any problems with his kidney. He has undergone kidney transplant. He notes that his pain can be exacerbated with walking, standing as well as with weather changes. Pain improves when he lies down or when he is sitting on a chair. Because of the pain that is radiating down into his back involving his left hip and leg, he would like to undergo another injection today. ALLERGIES: SULFA. CURRENT MEDICATIONS: Hydrocodone 5/325 one p.o. q. 6 hours p.r.n., Flomax 0.4 mg, Proscar 5 mg, tramadol 50 mg b.i.d., Lipitor 40 mg, chlorthalidone 12.5 mg daily, Imdur 30 mg, prednisone 10 mg, Prograf 5 mg b.i.d., metoprolol 100 mg daily, Zestril 40 mg, CellCept 500 mg total of 750 mg b.i.d. and aspirin 81 mg. PAIN CLINIC ASSESSMENT AND PQRS: 1. The patient is not being treated for osteoarthritis or rheumatoid arthritis. 2. Height 5 feet 7 inches, weight 207 pounds, BMI is 32.5. 3. Vital signs: Blood pressure 159/91, pulse 75, respiratory rate 18, room air saturation 99%. 4. Pain intensity 11/13. 5. Fall history: The patient has not fallen in the last 3 months. 6. Blood thinner. The patient is not on a blood thinning medication. 7. Hypertension. The patient is being treated for hypertension. 8. Opioids greater than 6 weeks. The patient is not on an opioid regimen. The patient receives opioids from his primary physician. 9. Risk assessment tool, [place] [id number] PAIN MANAGEMENT CONSULTATION Name: JAIME KELLY Room #: REG [facility].#: [id number] Admission: 12/20/19 Attend Phys: John Guerra MD Discharge: Date of : 54 Report #: [id number] 10. Functional assessment tool 41/70. 11. Recreational drugs: The patient denies. 12. Tobacco: The patient has never smoked. 13. Alcohol. The patient denies use of alcoholic beverages. PHYSICAL EXAMINATION: GENERAL: The patient is a well-developed, well-nourished white male. Appears his stated age. He is alert and oriented x 3. His affect is appropriate. Speech is fluent. HEENT: Normocephalic, atraumatic. Extraocular eye muscles intact. Sclerae nonicteric. Mucous membranes are moist. NECK: Without adenopathy or JVD. HEART: Regular rate. LUNGS: Generally clear to auscultation. ABDOMEN: Nontender. Bowel sounds present. MUSCULOSKELETAL: The patient without significant scoliosis, kyphosis or lordosis. The patient has pain in the lower extremity with pain that is radiating down into the left leg, hip and in the L5-S1 dermatomal distribution with pain in his calf and thorne. IMPRESSION: 1. Lumbar radiculopathy pain in the L5-S1 dermatomal distribution. 2. Hypercholesterolemia. 3. Hypertension. 4. Kidney failure, status post renal transplant. 5. Heart attack 23 years ago. 6. Prostatic hypertrophy. 7. Hypercholesterolemia. RECOMMENDATIONS: We discussed treatment options with the patient. Risks and benefits of an epidural steroid injection were discussed. Possible complications of the procedure, which could include but are not limited to infection, worsening of pain, no improvement in pain, nerve damage were discussed and the patient elects to proceed. PROCEDURE NOTE: The patient was taken to the procedure area. He was then assisted in getting on the examination table. He was helped to get into position. A pillow was placed under the abdomen to bolster and improve positioning. His back was sterilely prepped with a Betadine solution. This was allowed to dry. Fluoroscopy using anterior, posterior as well as lateral viewing were implemented. A 0.25% bupivacaine was infiltrated at the L5-S1 area. This was anesthetized. A 17-gauge Tuohy with loss of resistance technique was then used to gain access to the epidural space. There was no CSF, heme or paresthesia. Total of 80 mg Depo-Medrol, 40 mg triamcinolone and 2 mL of 0.25% bupivacaine was injected. The patient tolerated the procedure well. There were no complications. He remained in the pain clinic for an appropriate [facility] [address] [place] [address] PAIN MANAGEMENT CONSULTATION Name: JAIME KELLY Room #: REG [facility].#: [id number] Admission: 12/20/19 Attend Phys: John Guerra MD Discharge: Date of : 54 Report #: [id number] amount of time. We would like to thank you for letting us participate in his care. We hope he continues to improve. <ELECTRONICALLY SIGNED> By: John Guerra MD 12/29/19 0821 1655 2325 John Guerra MD /nt
== END | disposition home or self-care (01) ==
LOC: PAIN 06:41
DX: M54.16 Radiculopathy, lumbar region (principal); E78.00 Pure hypercholesterolemia, unspecified; I10 Essential (primary) hypertension; I25.2 Old myocardial infarction; Z98.890 Other specified postprocedural states; Z79.899 Other long term (current) drug therapy; Z79.891 Long term (current) use of opiate analgesic; Z94.0 Kidney transplant status; Z88.2 Allergy status to sulfonamides

== ENCOUNTER → 2020-03-07 | Outpatient (CLI) | payer OTHER | LOC: SJCVC 11:48 | PROVIDERS: ATTEND Internal Medicine Cardiovascular Disease | DX: R94.31 Abnormal electrocardiogram [ECG] [EKG] (principal); I25.10 Atherosclerotic heart disease of native coronary artery without angina pectoris; E78.00 Pure hypercholesterolemia, unspecified; I12.9 Hypertensive chronic kidney disease with stage 1 through stage 4 chronic kidney disease, or unspecified chronic kidney disease; N18.9 Chronic kidney disease, unspecified; I82.411 Acute embolism and thrombosis of right femoral vein; Z95.1 Presence of aortocoronary bypass graft; Z79.899 Other long term (current) drug therapy; Z87.891 Personal history of nicotine dependence ==

== ENCOUNTER → 2020-04-15 | Outpatient (CLI) | payer OTHER ==
[~2020-04-15] MED LIST changes: +CARVEDILOL25 MG PO; +ELIQUIS5 MG PO; +MAGNESIUM400 MG PO; +NEURONTIN100 MG PO; +TORSEMIDE20 MG PO
== END ==
LOC: SJCVCIMAG 04-04 10:01
PROVIDERS: ATTEND Internal Medicine Cardiovascular Disease
DX: I08.1 Rheumatic disorders of both mitral and tricuspid valves (principal); I11.9 Hypertensive heart disease without heart failure; R94.31 Abnormal electrocardiogram [ECG] [EKG]; I25.810 Atherosclerosis of coronary artery bypass graft(s) without angina pectoris; R60.9 Edema, unspecified; E78.00 Pure hypercholesterolemia, unspecified; E78.5 Hyperlipidemia, unspecified; Z95.1 Presence of aortocoronary bypass graft; Z82.49 Family history of ischemic heart disease and other diseases of the circulatory system; Z79.82 Long term (current) use of aspirin; Z79.899 Other long term (current) drug therapy; Z87.891 Personal history of nicotine dependence

== ENCOUNTER → 2020-04-17 | Outpatient (CLI) | payer OTHER ==
[~2020-04-17] VITALS: Ht 170.2 cm; Wt 94.5 kg
[2020-04-17 08:50] VITALS: BP 149/79
--- NOTE | 2020-04-17 08:56 | NUR ---
Pain Clinic Assessment: 1. History of Osteoarthritis: SPINE History of Rheumatoid Arthritis: NO 2. Height: 5 ft. 7 in. 170.2 cm. Weight: 208.4 lb. oz. 94.530 kg. Patient's BMI: 32.6 3. Vital Signs: BP: 149/79 Pulse: 79 Resp: 16 Temp: 02 Sat: 100 ECG Mon: 4. Pain Intensity: 4-5 5. Fall Risk: Dizziness: N Needs help standing or walking: Y Fallen in the last 3 months: N Fall risk comments: FELL AT HOME,WENT TO ER AND HE HAD A BLOOD CLOT IN HIS RIGHT GROIN/ON ELIQUIS 6. Patient on Blood Thinner: None 7. History of Hypertension: Y 8. Opioid Therapy greater than 6 weeks: N Opiate Contract Signed: 9. Risk Assessment Tool Provided: LOW RISK 0/3 10. Functional Assessment Tool: 41/70 11. Recreational Drug Use: Never Drug Type: Tobacco Use: Never Smoker Tobacco Type: Amount or Packs/day: How Many Years: Alcohol Use: Yes Frequency: Quant:
--- NOTE | 2020-05-01 08:53 | HPC ---
[facility] [place] [address] PAIN MANAGEMENT CONSULTATION Name: JAIME KELLY Room #: REG [facility].#: [id number] Admission: 04/17/20 Attend Phys: John Guerra MD Discharge: Date of : 54 Report #: [id number] THIS REPORT FOR: cc: Romel Simms MD,Romel Guerra,John Lombardi MD ~ CC: John Simms DATE OF SERVICE: 04/17/2020 CHIEF COMPLAINT: Here for an injection. HISTORY: The patient is a 69-year-old gentleman who has been followed in the pain clinic for quite some time. He has pain and discomfort involving his low back area. He has undergone epidural steroid injections in the past and found them beneficial. He returns today because of worsening of pain and discomfort in his low back. He is having pain that radiates down into his legs. He has developed a blood clot on the right leg. He has been placed on a blood thinning medication. Notes his pain is a 4-5/10. Walking, standing can be problematic. The patient notes improvement when he is lying down or when he is sitting. ALLERGIES: SULFA. CURRENT MEDICATIONS: Eliquis 5 mg b.i.d., Coreg 25 mg b.i.d., torsemide 20 mg, Flomax 0.4 mg, hydrocodone 5/325 q. 6 hours p.r.n., Proscar 5 mg, tramadol 50 mg b.i.d., Lipitor 40 mg, Imdur 30 mg, prednisone 10 mg daily, Prograf b.i.d., Zestril 40 mg, CellCept 500 mg b.i.d. and aspirin 81 mg. PAIN CLINIC ASSESSMENT AND PQRS: 1. History of osteoarthritis involving the spine. The patient is not being treated for rheumatoid arthritis. 2. Height 5 feet 7 inches, weight 208, respiratory rate is 16, room air saturation is 100%. Blood pressure 149/79, pulse 79, pain intensity is 4-5/10. 3. Fall history: The patient fell at home, went to the Emergency Room, found to have a blood clot in his right groin area. He is on Eliquis. 4. Blood thinner. The patient is on Eliquis. 5. Hypertension. The patient is being treated for hypertension. 6. Opioids. The patient receives medications from his primary. 7. Risk assessment tool, low for opioid use. 8. Functional assessment tool 41/70. 9. Recreational drug use, denies. 10. Tobacco: Does not smoke. 11. Alcohol: The patient drinks alcoholic beverages on occasion. PHYSICAL EXAMINATION: [facility] [address] [place] [address] PAIN MANAGEMENT CONSULTATION Name: JAIME KELLY IDALIA [facility] [id number] Admission: 04/17/20 Attend Phys: John Guerra MD Discharge: Date of : 54 Report #: [id number] GENERAL: The patient is a well-developed, well-nourished white male. Appears his stated age. He is alert and oriented x 3. His affect is appropriate. Speech is fluent. HEENT: Normocephalic, atraumatic. Extraocular eye muscles intact. Sclerae nonicteric. Mucous membranes are moist. NECK: Without adenopathy or JVD. HEART: Regular rate. LUNGS: Clear. ABDOMEN: Nontender. Bowel sounds present. MUSCULOSKELETAL: Upper extremity muscle strength 5/5. The patient without significant scoliosis, kyphosis or lordosis. The patient does have some pain and discomfort in the groin area. It involves his left leg. Does have L5-S1 dermatomal distribution of pain into his calf. IMPRESSION: 1. Lumbar radiculopathy in the L5-S1 dermatomal distribution. 2. New onset of blood clot in the leg, treated with anticoagulant. 3. Hypercholesterolemia. 4. Hypertension. 5. Kidney failure, status post renal transplant. 6. Heart attack 23 years ago. 7. Prostatic hypertrophy. 8. Hypercholesterolemia. RECOMMENDATIONS: We discussed treatment options with the patient. At this juncture, we will continue with his medications. He will try tramadol. He is on a blood thinning medication at this juncture, he needs to check with his primary as to when he can come off the medication. After he comes off his medication, he can return to the pain clinic, at which time we could then consider an epidural steroid injection. We would like to thank you for letting us participate in his care. We hope he continues to improve. <ELECTRONICALLY SIGNED> By: John Guerra MD 05/01/20 0853 0830 1555 John Guerra MD /ilana
== END ==
LOC: PAIN 06:52
PROVIDERS: ATTEND Anesthesiology Pain Medicine
DX: M54.16 Radiculopathy, lumbar region (principal); E78.00 Pure hypercholesterolemia, unspecified; I10 Essential (primary) hypertension; Z94.0 Kidney transplant status; Z86.74 Personal history of sudden cardiac arrest; Z79.01 Long term (current) use of anticoagulants

== ENCOUNTER → 2020-05-22 | Outpatient (CLI) | payer OTHER ==
[~2020-05-22] VITALS: Ht 170.2 cm; Wt 91.6 kg
[2020-05-22 10:21] VITALS: BP 169/94
--- NOTE | 2020-05-22 10:33 | NUR ---
Pain Clinic Assessment: 1. History of Osteoarthritis: SPINE History of Rheumatoid Arthritis: NO 2. Height: 5 ft. 7 in. 170.2 cm. Weight: 202.0 lb. oz. 91.627 kg. Patient's BMI: 31.6 3. Vital Signs: BP: 169/94 Pulse: 73 Resp: 16 Temp: 02 Sat: 99 ECG Mon: 4. Pain Intensity: 2 5. Fall Risk: Dizziness: N Needs help standing or walking: N Fallen in the last 3 months: N Fall risk comments: FELL AT HOME,WENT TO ER AND HE HAD A BLOOD CLOT IN HIS RIGHT GROIN/ON ELIQUIS 6. Patient on Blood Thinner: ELIQUIS 7. History of Hypertension: Y 8. Opioid Therapy greater than 6 weeks: N Opiate Contract Signed: 9. Risk Assessment Tool Provided: LOW RISK 0/3 10. Functional Assessment Tool: 11. Recreational Drug Use: Never Drug Type: Tobacco Use: Never Smoker Tobacco Type: Amount or Packs/day: How Many Years: Alcohol Use: Yes Frequency: Special Occasions Quant:
--- NOTE | 2020-05-22 13:56 | HPC ---
[facility] [address] [address] PAIN MANAGEMENT CONSULTATION Name: JAIME KELLY Room #: REG [facility].#: [id number] Admission: 05/22/20 Attend Phys: Penny Jackson Discharge: Date of : 54 Report #: [id number] THIS REPORT FOR: cc: Romel Simms MD, Steven E. MD Hocker, Amanda CNS ~ CC: Patrica Guerra MD DATE OF SERVICE: 05/22/2020 CHIEF COMPLAINT: Low back pain and lumbar radiculopathy. HISTORY OF PRESENT ILLNESS: This is a pleasant 69-year-old who returns to the pain clinic today for a refill of his medication that he uses to help treat his lumbar radiculopathy. Today, he is reporting pain in his bilateral hips, greater on the left that does radiate into his calf. He also complains of low back pain. It is an aching feeling, worse with walking and standing. Today, he reports his pain score of 2/10. It does increase at times throughout the day. He feels that lying down, sitting and his tramadol are very beneficial as well as taking the gabapentin that Dr. Guerra recently started him. The patient does report he continues on his blood thinner as a result of his blood clot in his lower extremity. He is hopeful stop the medication in June and then he would like to have another lumbar epidural steroid injection from Dr. Guerra. He finds these are very beneficial in decreasing his pain, but he understands that he is only able to take medications while on this blood thinner. ALLERGIES: SULFA. CURRENT LIST OF MEDICATIONS: Tramadol 50 mg p.r.n., gabapentin 100 mg t.i.d., magnesium, Eliquis, Coreg, furosemide, tamsulosin, hydrocodone p.r.n., Proscar, Lipitor, Imdur, prednisone, Prograf, lisinopril, sulfa and aspirin. PQRS: 1. He has history of osteoarthritis involving his spine. He is not being treated for rheumatoid arthritis. 2. Height is 5 feet 7 inches, weight is 202. BMI is 31. 3. Vital signs 169/94, pulse is 73, respirations 16, oxygen sat is 99%. Pain score is 2/10. 4. Fall risk. Denies dizziness, does not need help walking or standing, has not fallen in the last 3 months. The patient remains on Eliquis as well as medications for high blood pressure. 5. His opioid therapy is greater than 6 weeks. Risk assessment tool is low. Functional assessment is 33/70. 6. Recreational drug use, he denies. He is [place] [address] PAIN MANAGEMENT CONSULTATION Name: KELLYJAIME IDALIA [facility] [id number] Admission: 05/22/20 Attend Phys: Penny Jackson Discharge: Date of : 54 Report #: [id number] drinks alcohol. According to the prescription monitoring system, the patient is filling his medications appropriately. Dr. Guerra started writing his medications in April. Previously, Dr. Martin was prescribing his tramadol prescriptions. He has been filling monthly. His morphine milliequivalent according to the CDC guidelines is 20 MME. PHYSICAL EXAMINATION: GENERAL: This is alert and orientated, pleasant 69-year-old who is well-developed, well-nourished white gentleman. His affect is appropriate. Speech is fluent, placing his current pain score at 2/10. HEENT: Normocephalic, atraumatic. Extraocular eye muscles are intact. Sclerae are nonintrinsic. He is wearing a mask. NECK: Without adenopathy or JVD. MUSCULOSKELETAL: The patient is without significant scoliosis, kyphosis or lordosis. He has discomfort in his lumbar spine that follows the L5-S1 dermatomal distribution into his legs, greater on the left than the right. His lower extremity strength judged to be symmetrical at 5/5. IMPRESSION: 1. Lumbar radiculopathy with pain in the L5-S1 dermatomal distribution. 2. Recent blood clot in his leg, on anticoagulation therapy. 3. Hypercholesterolemia. 4. Hypertension. 5. Kidney failure, status post renal transplant. 6. Opioid medication management. We reviewed the fact that opiate medications are being used to provide analgesia adequate to support activities of daily living, not attempting to achieve a specific pain score on the 0-10 Visual Analog Scale. The current opiate medications are providing sufficient analgesia to allow the patient to participate in activities of daily living. The patient is not exhibiting any aberrant behavior suggestive of drug diversion. The patient is not having any adverse reactions to medications. The patient is not suffering from daytime somnolence or mental acuity changes. The patient is managing opiate-induced constipation with appropriate bptm-ebd-sndrpup agents and dietary considerations. The patient was counseled on concern for caution with operating a motor vehicle while using opiate medications. PLAN: 1. We discussed treatment options with the patient today. The patient understands that he is not able to have an injection in his back, which he finds very beneficial until he is off his blood thinner. He hopes to be off by the end of the year. In the meantime, we will continue him on his current medication regimen of gabapentin 100 mg t.i.d. Scripts for 90 with 5 refills, [facility] [address] [place] [address] PAIN MANAGEMENT CONSULTATION Name: JAIME KELLY Room #: REG [facility].#: [id number] Admission: 05/22/20 Attend Phys: Penny Jackson Discharge: Date of : 54 Report #: [id number] and we will have Dr. Sekou Guerra send his tramadol 50 mg q.i.d., #120 with 2 additional refills for a total of 3 months. 2. I did inform the patient if Dr. Guerra continues to write this medication, we will have him sign a written opioid agreement with our physicians and that will be required to see him on an every 3-month basis. The patient verbalizes understanding. He is hopeful that after his epidural, he will be able to decrease his medication intake. 3. The patient is seen today in collaboration with Dr. Harjit Guerra who did see the patient as well. <ELECTRONICALLY SIGNED> By: Penny Jackson 05/22/20 1356 1101 1340 Penny Jackson /nt
== END ==
LOC: PAIN 06:52
PROVIDERS: ATTEND Clinical Nurse Specialist Adult Health
DX: M54.16 Radiculopathy, lumbar region (principal); I74.3 Embolism and thrombosis of arteries of the lower extremities; I10 Essential (primary) hypertension; N17.9 Acute kidney failure, unspecified; Z94.0 Kidney transplant status; Z88.2 Allergy status to sulfonamides; Z79.899 Other long term (current) drug therapy

== ENCOUNTER → 2020-10-14 | Outpatient (CLI) | payer OTHER | LOC: SJCVC 10:55 | PROVIDERS: ATTEND Internal Medicine Cardiovascular Disease | DX: I49.1 Atrial premature depolarization (principal); R94.31 Abnormal electrocardiogram [ECG] [EKG]; I25.810 Atherosclerosis of coronary artery bypass graft(s) without angina pectoris; E78.00 Pure hypercholesterolemia, unspecified; R60.9 Edema, unspecified; I82.411 Acute embolism and thrombosis of right femoral vein; I12.9 Hypertensive chronic kidney disease with stage 1 through stage 4 chronic kidney disease, or unspecified chronic kidney disease; N18.9 Chronic kidney disease, unspecified; E78.5 Hyperlipidemia, unspecified; Z95.1 Presence of aortocoronary bypass graft; Z79.82 Long term (current) use of aspirin; Z79.899 Other long term (current) drug therapy; Z82.49 Family history of ischemic heart disease and other diseases of the circulatory system; Z87.891 Personal history of nicotine dependence ==

== ENCOUNTER → 2021-01-15 | Outpatient (CLI) | payer OTHER ==
[~2021-01-15] VITALS: Ht 170.2 cm; Wt 96.5 kg
[2021-01-15 11:09] VITALS: BP 148/84
--- NOTE | 2021-01-15 11:17 | NUR ---
Pain Clinic Assessment: 1. History of Osteoarthritis: SPINE History of Rheumatoid Arthritis: NO 2. Height: 5 ft. 7 in. 170.2 cm. Weight: 212.8 lb. oz. 96.526 kg. Patient's BMI: 33.3 3. Vital Signs: BP: 148/84 Pulse: 73 Resp: 16 Temp: 02 Sat: 98 ECG Mon: 4. Pain Intensity: 4 5. Fall Risk: Dizziness: N Needs help standing or walking: N Fallen in the last 3 months: N Fall risk comments: FELL AT HOME,WENT TO ER AND HE HAD A BLOOD CLOT IN HIS RIGHT GROIN/ON ELIQUIS 6. Patient on Blood Thinner: ELIQUIS 7. History of Hypertension: Y 8. Opioid Therapy greater than 6 weeks: N Opiate Contract Signed: 9. Risk Assessment Tool Provided: LOW RISK 0/3 10. Functional Assessment Tool: 11. Recreational Drug Use: Never Drug Type: Tobacco Use: Never Smoker Tobacco Type: Amount or Packs/day: How Many Years: Alcohol Use: Yes Frequency: Special Occasions Quant: 2
== END | disposition home or self-care (01) ==
LOC: PAIN 09:52
PROVIDERS: ATTEND Anesthesiology Pain Medicine
DX: M54.16 Radiculopathy, lumbar region (principal); G89.29 Other chronic pain; E78.00 Pure hypercholesterolemia, unspecified; I10 Essential (primary) hypertension; I25.2 Old myocardial infarction; N40.0 Benign prostatic hyperplasia without lower urinary tract symptoms; Z98.890 Other specified postprocedural states; Z79.899 Other long term (current) drug therapy; Z79.01 Long term (current) use of anticoagulants; Z95.1 Presence of aortocoronary bypass graft; Z88.2 Allergy status to sulfonamides; Z94.0 Kidney transplant status

== ENCOUNTER → 2021-04-15 | Outpatient (CLI) | payer OTHER | LOC: SJCVCIMAG 07:43 | PROVIDERS: ATTEND Internal Medicine Cardiovascular Disease | DX: I49.3 Ventricular premature depolarization (principal); R06.00 Dyspnea, unspecified; M54.9 Dorsalgia, unspecified; I10 Essential (primary) hypertension; E78.00 Pure hypercholesterolemia, unspecified; R60.9 Edema, unspecified; I82.411 Acute embolism and thrombosis of right femoral vein; I12.9 Hypertensive chronic kidney disease with stage 1 through stage 4 chronic kidney disease, or unspecified chronic kidney disease; N18.9 Chronic kidney disease, unspecified; I25.10 Atherosclerotic heart disease of native coronary artery without angina pectoris; E78.5 Hyperlipidemia, unspecified; Z95.1 Presence of aortocoronary bypass graft; Z94.0 Kidney transplant status; Z98.890 Other specified postprocedural states; Z88.2 Allergy status to sulfonamides; Z79.82 Long term (current) use of aspirin; Z79.899 Other long term (current) drug therapy; Z87.891 Personal history of nicotine dependence; Z82.49 Family history of ischemic heart disease and other diseases of the circulatory system ==